=== PATIENT | female | born 1985 | race Caucasian/White ===

== ENCOUNTER 2016-09-15 11:35 | Emergency (ER) | payer BC ==
[~2016-09-15] VITALS: Wt 63.5 kg
[~2016-09-15 11:35] MED LIST: IBUP-1542 PO
[2016-09-15] MEDS ORDERED: LORA1TAB PO (13:06)
--- NOTE | 2016-09-15 13:11 | ERD ---
ER Documentation Chief Complaint Date/Time DATE: 09/15/16 TIME: 13:08 Chief Complaint ANXIETY, STATES WENT TO DOCTOR BUT NO RX GIVEN HPI 31-year-old female who presents the emergency room for anxiety. She describes approximately 1 month of increased anxiety, depression and anxious mood. She describes difficulty sleeping. She states this stems from a difficult relationship breakup. She denies any suicidal or homicidal ideation. The patient states that she lives in a safe place. She states that she has been bouncing around has not been able to see her primary care physician or psychiatrist. The patient is asking for anxiety medication to help her sleep. ROS All systems reviewed and are negative except as per history of present illness. Medications Home Meds Active Scripts Lorazepam* (Lorazepam*) 1 Mg Tablet, 1 MG PO Q8H Y for ANXIETY, #10 TAB Prov:MAC MORENO MD 09/15/16 Ibuprofen* (Motrin*) 600 Mg Tab, 600 MG PO Q6, #15 TAB Prov:ADEOLA ESCUDERO MD 08/08/16 Allergies Allergies: Coded Allergies: No Known Drug Allergies (Unverified Allergy, Unknown, 10/02/14) PMhx/Soc History of Surgery: No Anesthesia Reaction: No Hx Neurological Disorder: No Hx Respiratory Disorders: No Hx Cardiac Disorders: No Hx Psychiatric Problems: No Hx Miscellaneous Medical Probl: No Hx Alcohol Use: No Hx Substance Use: No Hx Tobacco Use: No FmHx Family History: No diabetes Physical Exam Vitals Vital Signs Date Time Temp Pulse Resp B/P Pulse Ox O2 Delivery O2 Flow Rate FiO2 09/15/16 11:42 98.3 101 18 130/81 100 Physical Exam General: Well developed, well nourished, no acute distress Head: Normocephalic, atraumatic. Eyes: Pupils equally reactive, EOM intact ENT: Moist mucous membranes Neck: Supple, no lymphadenopathy Respiratory: Lungs clear bilaterally, no distress Cardiovascular: RRR, no murmurs, rubs, or gallops Abdominal: Soft, non-tender, non-distended, no peritoneal signs : Deferred MSK: No edema, no unilateral swelling, 5/5 strength Neurologic: Alert and oriented, moving all extremities, normal speech, no focal weakness, no cerebellar signs Skin: No rash Psych: Anxious mood, slightly depressed no suicidal ideation Procedures/MDM The patient presents with a clear adjustment disorder with anxiety. No suicidal or homicidal ideation. I did discuss with the patient that the answer is not medications alone. The patient needs to see a psychiatrist or psychologist. I will have a social worker aide give the patient resources. The patient will be given 10 tablets of Ativan to help with her anxiety and help with her sleep. The patient is not a danger to herself or others. She has good social support with family and friends. We discussed follow up with the patient's primary care doctor within 24 to 48 hours as needed. We also discussed return to the emergency room for worsening symptoms or worsening condition. Discharge Medications: Ativan 1 mg 10 tablets Departure Diagnosis: Primary Impression: Anxiety reaction Additional Impression: Adjustment disorder Adjustment disorder type: with anxious mood Qualified Code: F43.22 - Adjustment disorder with anxious mood Condition: Stable Patient Instructions: Anxiety Reaction Additional Instructions: Call your primary care doctor TOMORROW for an appointment during the next 1 WEEK.Tell the school attendance secretary that you were referred from this facility.See the doctor sooner or return here if your condition worsens before your appointment time. MAC MORENO MD Sep 15, 2016 13:11
== END 2016-09-15 14:20 | disposition home or self-care (01) ==
LOC: FTE 11:35
DX: F41.1 Generalized anxiety disorder (principal); F43.22 Adjustment disorder with anxiety
CPT/HCPCS: 99283

== ENCOUNTER 2018-05-16 18:21 | Outpatient (CLI) | END 2018-05-16 19:56 | disposition home or self-care (01) ==

== ENCOUNTER 2018-05-26 05:28 | Inpatient (IN) | END 2018-05-28 17:44 | disposition home or self-care (01) | DRG 775 ==